=== PATIENT | female | born 1950 | race Caucasian/White ===

== ENCOUNTER 2020-02-07 22:13 | Emergency (ER) | payer OTHER ==
[~2020-02-07] VITALS: Ht 157.5 cm; Wt 67.6 kg
--- NOTE | 2020-02-07 22:21 | NUR ---
PATIENT CAME TO ER BED 4 FROM HOME BIB RA C/O HEADACHE SINCE 30x MINUTES AGO. PATIENT STATES THAT SHE WAS FIXING HER CLOTHES IN HER DRAWERS WHEN SHE STOOD UP, HER TEMPLES WERE HURTING RADIATING FROM THE BACK OF HER NECK. PATIENT STATES THAT WHEN SHE TURNS HER NECK, IT BEGINS TO HURT. PATIENT IS AAOX4. NO SOB .BREATHING EVENLY AND UNLABORED ON ROOM AIR. PATIENT IS AMBULATORY WITH A STEADY GAIT. Addendum: 02/07/20 at 2242 by JOSE PATIENT STATES THAT SHE TOOKE 1 IBUPROFEN PILL. UNKNOWN DOSAGE.
[2020-02-07] MEDS ORDERED: ACETAMINOPHEN ES 500 MG TABLET PO ONE (22:30)
[2020-02-07] MEDS ORDERED: METOCLOPRAMIDE HCL 10 MG/2 ML VIAL IV ONE (22:30)
--- NOTE | 2020-02-07 22:41 | NUR ---
BLOOD COLLECTED AND SENT TO THE LAB.
[2020-02-07] MEDS ORDERED: ACETAMINOPHEN ES 500 MG TABLET ONE (22:43)
[2020-02-07] MEDS ORDERED: METOCLOPRAMIDE HCL 10 MG/2 ML VIAL ONE (22:43)
[2020-02-07 22:54] LABS: BASOPHILS % (AUTO) 0.8 % (0.0-2.0); EOSINOPHILS % (AUTO) 2.4 % (0.0-6.0); HEMATOCRIT 41 % (33-45); HEMOGLOBIN 13.6 g/dL (11.5-14.8); LYMPHOCYTES # (AUTO) 2.6 /CMM (0.8-4.8); LYMPHOCYTES % (AUTO) 46.2 % (20.0-44.0); MEAN CORPUSCULAR HGB CONC 33 g/dl (31.0-36.0); MEAN CORPUSCULAR VOLUME 87 fL (82-100); MONOCYTES # (AUTO) 0.4 /CMM (0.1-1.30); NEUTROPHILS # (AUTO) 2.5 /CMM (1.8-8.9); NEUTROPHILS % (AUTO) 43.6 % (43.0-81.0); PLATELET COUNT (AUTO) 270 /CMM (150-450); RED BLOOD CELL COUNT(AUTO) 4.72 MIL/uL (4.0-5.2); WHITE BLOOD COUNT (AUTO) 5.7 K/uL (4.3-11.0)
[2020-02-07 23:01] LABS: CALCIUM, SERUM 9.2 mg/dL (8.5-10.1); CREATININE 0.7 mg/dL (0.6-1.3); POTASSIUM 3.4 mmol/L (3.5-5.1)
[2020-02-07] MEDS ORDERED: IOHEXOL-350 100 ML VIAL IV ONE (23:18)
[2020-02-07] MEDS ORDERED: IV NS 0.9% 250 ML IV ONE (23:19)
--- NOTE | 2020-02-08 00:13 | NUR ---
CALLED [facility], WAITING FOR [facility] MD CALL BACK
--- NOTE | 2020-02-08 00:15 | NUR ---
DR. MALONE SPEAKING TO DR. CORDOBA REGARDING PLAN OF CARE.
[2020-02-08] MEDS ORDERED: MORPHINE SULFATE INJ 2 MG/ML DISP.SYRIN IV ONE (00:30)
[2020-02-08] MEDS ORDERED: ONDANSETRON HCL/PF - ER 4 MG/2 ML VIAL IV ONE (00:30)
--- NOTE | 2020-02-08 00:32 | NUR ---
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
[2020-02-08] MEDS ORDERED: MORPHINE SULFATE INJ 4 MG/ML DISP.SYRIN ONE (00:36)
[2020-02-08] MEDS ORDERED: ONDANSETRON HCL/PF 4 MG/2 ML VIAL ONE (00:36)
--- NOTE | 2020-02-08 00:46 | NUR ---
CLARIBEL FROM [facility] ACCEPTED [facility] ICU ROOM [id number] EXT [id number] PRN TRANSPORT 10 MINS ETA.
[2020-02-08 00:56] VITALS: BP 148/86
--- NOTE | 2020-02-08 00:59 | NUR ---
REPORT GIVEN TO ART RN AT [facility].
--- NOTE | 2020-02-08 01:02 | NUR ---
GAVE REPORT TO [facility] TRANSPORT TEAM FOR FORREST. AND TRANSFERRING RESPONSIBLITIES.
== END 2020-02-08 01:08 | disposition short-term general hospital (02) ==
LOC: ER 22:15
DX: I60.8 Other nontraumatic subarachnoid hemorrhage (principal); R40.2412 Glasgow coma scale score 13-15, at arrival to emergency department; Z20.828 Contact with and (suspected) exposure to other viral communicable diseases
CPT/HCPCS: 36415; 70450; 70496; 70498; 80048; 85025; 87426; 96374; 96375; 99291; 99292; C9803; J2270; J2405 ×2; J2765; J7050; Q9967